=== PATIENT | male | born 1960 | race Caucasian/White ===

== ENCOUNTER → 2020-05-26 | Outpatient (CLI) | payer OTHER ==
[~2020-05-26] MED LIST: TOPROL XL25 MG PO
== END ==
LOC: KOH-I 12:06
DX: R50.9 Fever, unspecified (principal)
CPT/HCPCS: 71046

== ENCOUNTER → 2020-10-12 | Outpatient (CLI) | payer OTHER ==
[2020-10-12 13:12] LABS: HEMOGLOBIN 15.4 gm/dl (14.0-17.5); RED BLOOD COUNT 4.55 M/UL (4.20-5.50); WHITE BLOOD COUNT 6.8 K/UL (4.5-11.0)
[2020-10-12 13:36] LABS: BUN/CREATININE RATIO 11 (0-10)
== END ==
LOC: LAB 11:54
PROVIDERS: Nurse Practitioner
DX: M10.071 Idiopathic gout, right ankle and foot (principal); M25.571 Pain in right ankle and joints of right foot
CPT/HCPCS: 36415; 80053; 84550; 85025; 85652

== ENCOUNTER → 2021-04-26 | Outpatient (CLI) | payer OTHER | LOC: KOH-I 10:08 | DX: M25.512 Pain in left shoulder (principal); M25.562 Pain in left knee; G89.29 Other chronic pain | CPT/HCPCS: 73030; 73562 ==

== ENCOUNTER → 2021-05-13 | Outpatient (CLI) | payer OTHER | LOC: CT 07:33 | DX: K76.9 Liver disease, unspecified (principal); K80.20 Calculus of gallbladder without cholecystitis without obstruction | CPT/HCPCS: 36415; 74170; 82565; Q9967 ==